=== PATIENT | female | born 1940 | race Caucasian/White ===

== ENCOUNTER 2024-03-23 21:42 | Emergency (ER) | payer MEDICARE ==
[~2024-03-23] VITALS: Ht 162.6 cm; Wt 49.4 kg
[2024-03-23 22:36] VITALS: PULSE 77; RESP 18; TEMP 97.4; O2SAT 100
[2024-03-23] MEDS ORDERED: MEDROL4 M2 PO (22:49)
== END 2024-03-23 22:54 | disposition home or self-care (01) ==
LOC: ER 22:40
DX: L30.8 Other specified dermatitis (principal); T63.421A Toxic effect of venom of ants, accidental (unintentional), initial encounter; Y92.89 Other specified places as the place of occurrence of the external cause
CPT/HCPCS: 99283